=== PATIENT | male | born 2000 | race Caucasian/White ===

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

== ENCOUNTER 2018-08-15 11:08 | Emergency (ER) | payer BC ==
[2018-08-15 12:17] LABS: ABS Eosinophils 0.1 10^3/ul (0-0.6); ABS Lymphocytes 2.4 10^3/ul (1.0-4.8); ABS Monocytes 0.5 10^3/ul (0-0.8); ABS Neutrophils 2.7 10^3/ul (1.5-7.7); Eosinophil % 1.7 %; Hematocrit 48 % (42-52); Hemoglobin 16.2 g/dL (14.0-18.0); Lymphocyte % 42.2 %; Mean Corpuscular HGB Conc 34 g/dL (31-36); Mean Corpuscular Hemoglobin 31 pg (27-31); Mean Corpuscular Volume 90 fL (80-94); Nucleated Red Blood Cells % 0.1; Platelet Count 281 10^3/uL (150-450); Red Blood Count 5.27 10^6 /uL (4.18-5.48); Red Cell Distribution Width 12 % (10-15); White Blood Count 5.8 10^3/uL (3.5-10.8)
[2018-08-15 12:31] LABS: INR 1.13 (0.82-1.09)
[2018-08-15 12:41] LABS: Albumin 4.7 g/dL (3.2-5.2); Albumin/Globulin Ratio 1.9 (1-3); Calcium 10.1 mg/dL (8.6-10.3); EGFR African American 105.5 (>60); EGFR Non-African American 87.2 (>60); Globulin 2.5 g/dL (2-4); Potassium 3.6 mmol/L (3.5-5.0); Total Bilirubin 2.2 mg/dL (0.2-1.0); Total Protein 7.2 g/dL (6.4-8.9)
--- NOTE | 2018-08-15 13:52 | ED ---
HPI Chest Pain - HPI Summary HPI Summary: This pt is a 18 y/o M presenting to [facility] with a CC of right-mid anterior chest pain that is localized. He stated that he woke up this morning feeling anxious, nauseous and pale. Went and bought tums for a burning stomach pain that originated, came home and ate eggs for breakfast before laying down developing the CP described as cramping which is a 4/10 in severity. The pt states that the pain is alleviated with a deep breath. He states no unusual behaviors other taking a melatonin last night be described that he has taken the melatonin in the past without any effect. He has no aggravating symptoms. He denies vomiting , diarrhea, headaches, SOB, fevers, cough, diaphoresis, and a sore throat. He has a Hx of anxiety and is currently living with his girlfriend and aiding her at her job. - History of Current Complaint Chief Complaint: EDChestPainROMI Time Seen by Provider: 08/15/18 13:39 Hx Obtained From: Patient Onset/Duration: Started Hours Ago - [id number], Still Present Time of Onset: 09:30 Timing: Constant Initial Severity: Moderate Current Severity: Moderate Pain Intensity: 4 Pain Scale Used: 0-10 Numeric Chest Pain Location: Discrete at:, Right Anterior - close to his mid-line Chest Pain Radiates: No Character: Other: - cramping Aggravating Factor(s): Nothing Alleviating Factor(s): Other: - deep breaths Associated Signs and Symptoms: Positive: Negative - vomiting, diarrhea, headaches, SOB, fevers, cough, diaphoresis, and a sore throat, Chest Pain - Right-mid anterior, Anxiety, Nausea, Abdominal Pain - described as burning - Allergy/Home Medications Allergies/Adverse Reactions: Allergies Allergy/AdvReac Type Severity Reaction Status Date / Time No Known Allergies Allergy Verified 08/15/18 11:19 PMH/Surg Hx/FS Hx/Imm Hx Previously Healthy: No Infectious Disease History: No Infectious Disease History: Denies: Traveled Outside the [place] in Last 30 Days - Social History Alcohol Use: Occasionally Hx Substance Use: Yes - dextromethorphan Substance Use Type: Reports: Marijuana Hx Tobacco Use: No Smoking Status (MU): Never Smoked Tobacco Review of Systems Negative: Fever, Skin Diaphoresis Positive: Chest Pain - right-mid anterior, cramping Negative: Shortness Of Breath, Cough Positive: Abdominal Pain - burning, Nausea. Negative: Vomiting, Diarrhea Negative: Headache Positive: Anxious All Other Systems Reviewed And Are Negative: Yes Physical Exam - Summary Physical Exam Summary: Appearance: Well-appearing, Well-nourished, lying in bed comfortably Skin: Warm, dry, no obvious rash Eyes: sclera anicteric, no conjunctival pallor ENT: mucous membranes moist, pharynx appears normal Neck: Supple, nontender Respiratory: Clear to auscultation, no signs of respiratory distress Cardiovascular: Normal S1, S2. No murmurs. Normal distal pulses in tibial and radial bilaterally. Abdomen: Soft, nontender, normal active bowel sounds present Musculoskeletal: Normal, Strength/ROM Intact Neurological: A&Ox3, awake and alert, mentation is normal, speech is fluent and appropriate Psychiatric: affect is normal, does not appear anxious or depressed Triage Information Reviewed: Yes Vital Signs On Initial Exam: Initial Vitals Temp Pulse Resp BP Pulse Ox 98.5 F 84 14 136/81 98 08/15/18 11:14 08/15/18 11:14 08/15/18 11:14 08/15/18 11:14 08/15/18 11:14 Vital Signs Reviewed: Yes Diagnostics - Vital Signs Vital Signs Temp Pulse Resp BP Pulse Ox 08/15/18 13:24 80 19 146/92 100 08/15/18 12:50 99.5 F 68 12 118/58 100 08/15/18 11:14 98.5 F 84 14 136/81 98 - Laboratory Lab Results: Lab Results 08/15/18 08/15/18 08/15/18 Range/Units 12:02 12:02 12:02 WBC 5.8 (3.5-10.8) 10^3/uL RBC 5.27 (4.18-5.48) 10^6 /uL Hgb 16.2 (14.0-18.0) g/dL Hct 48 (42-52) % MCV 90 (80-94) fL MCH 31 (27-31) pg MCHC 34 (31-36) g/dL RDW 12 (10-15) % Plt Count 281 (150-450) 10^3/uL MPV 8.0 (7.4-10.4) fL Neut % (Auto) 47.1 % Lymph % (Auto) 42.2 % [place] % (Auto) 8.2 % Eos % (Auto) 1.7 % Baso % (Auto) 0.8 % Absolute Neuts (auto) 2.7 (1.5-7.7) 10^3/ul Absolute Lymphs (auto) 2.4 (1.0-4.8) 10^3/ul Absolute Monos (auto) 0.5 (0-0.8) 10^3/ul Absolute Eos (auto) 0.1 (0-0.6) 10^3/ul Absolute Basos (auto) 0.0 (0-0.2) 10^3/ul Absolute Nucleated RBC 0.0 10^3/ul Nucleated RBC % 0.1 INR (Anticoag Therapy) 1.13 H (0.82-1.09) D-Dimer, Quantitative Pending Sodium 140 (135-145) mmol/L Potassium 3.6 (3.5-5.0) mmol/L Chloride 106 (101-111) mmol/L Carbon Dioxide 28 (22-32) mmol/L Anion Gap 6 (2-11) mmol/L BUN 14 (6-24) mg/dL Creatinine 1.08 (0.67-1.17) mg/dL Est GFR ( Amer) 105.5 (>60) Est GFR (Non-Af Amer) 87.2 (>60) BUN/Creatinine Ratio 13.0 (8-20) Glucose 92 (70-100) mg/dL Calcium 10.1 (8.6-10.3) mg/dL Total Bilirubin 2.20 H (0.2-1.0) mg/dL AST 16 (13-39) U/L ALT 11 (7-52) U/L Alkaline Phosphatase 39 (34-104) U/L Troponin I 0.00 (<0.04) ng/mL Total Protein 7.2 (6.4-8.9) g/dL Albumin 4.7 (3.2-5.2) g/dL Globulin 2.5 (2-4) g/dL Albumin/Globulin Ratio 1.9 (1-3) Result Diagrams: 08/15/18 12:02 08/15/18 12:02 Lab Statement: Any lab studies that have been ordered have been reviewed, and results considered in the medical decision making process. - Radiology CXR Radiology Interpretation Completed By: Radiologist Summary of Radiographic Findings: NO EVIDENCE FOR ACTIVE CARDIOPULMONARY DISEASE. ED physician has reviewed this report. - EKG 1108 Cardiac Rate: NL - 59 BPM EKG Rhythm: Sinus Rhythm ST Segment: Normal Ectopy: None Summary of EKG Findings: NSR at 59 BPM, P waves, QRS complex, and T waves are within normal limits, T waves and intervals are normal, no ischemic changes. This is a normal EKG. Interpreted by Dr. Lara 08/15/18 [id number]. Chest Pain Course/Dx - Course Course Of Treatment: This pt is a 18 y/o M presenting to [facility] with a CC of right-mid anterior chest pain that is localized. He stated that he woke up this morning feeling anxious, nauseous and pale. Went and bought tums for a burning stomach pain that originated, came home and ate eggs for breakfast before laying down developing the CP described as cramping which is a 4/10 in severity. Upon his PE he has no abnormal findings. His CXR shows NO EVIDENCE FOR ACTIVE CARDIOPULMONARY DISEASE. His EKG shows a NSR at 59 BPM, P waves, QRS complex, and T waves are within normal limits, T waves and intervals are normal, no ischemic changes. This is a normal EKG. He has no abnormal lab findings. The pt will be discharged with a DX of non-cardiac chest pain due to no abnormal findings during his ED course. - Diagnoses Provider Diagnoses: Non-cardiac chest pain Discharge - Sign-Out/Discharge Documenting (check all that apply): Patient Departure - discharge Patient Received Moderate/Deep Sedation with Procedure: No - Discharge Plan Condition: Stable Disposition: HOME Patient Education Materials: Noncardiac Chest Pain (ED) Additional Instructions: The tests we ran today did not show any concerning findings, but the exact cause of your pain is unclear. If it is not starting to improve over the weekend , or if the pain is worsening or you are developing other symptoms, we should see you back here. - Billing Disposition and Condition Condition: STABLE Disposition: Home - Attestation Statements Document Initiated by Scribe: Yes Documenting Scribe: Rashad Carias Provider For Whom Scribe is Documenting (Include Credential): Matty Lara MD Scribe Attestation: Rashad Keys, scribed for Matty Lara MD on 08/17/18 at 0444. Scribe Documentation Reviewed: Yes Provider Attestation: The documentation as recorded by the scribe, Rashad Carias accurately reflects the service I personally performed and the decisions made by me, Matty Lara MD Status of Scribe Document: Viewed
[2018-08-15 14:51] VITALS: BP 142/74
== END 2018-08-15 14:51 | disposition home or self-care (01) ==
LOC: ED 11:08
DX: R07.89 Other chest pain (principal)
CPT/HCPCS: 36415; 71046; 80053; 84484; 85025; 85379; 85610; 93005; 99283

== ENCOUNTER 2018-09-04 19:19 | Emergency (ER) | payer BC ==
[2018-09-04 20:30] LABS: ABS Basophils 0.1 10^3/ul (0-0.2); ABS Lymphocytes 1.8 10^3/ul (1.0-4.8); ABS Monocytes 0.3 10^3/ul (0-0.8); ABS Neutrophils 2.5 10^3/ul (1.5-7.7); Eosinophil % 0.9 %; Hematocrit 47 % (42-52); Mean Corpuscular HGB Conc 34 g/dL (31-36); Mean Corpuscular Hemoglobin 31 pg (27-31); Mean Corpuscular Volume 89 fL (80-94); Mean Platelet Volume 7.8 fL (7.4-10.4); Nucleated Red Blood Cells % 0.2; Platelet Count 284 10^3/uL (150-450); Red Blood Count 5.24 10^6 /uL (4.18-5.48); Red Cell Distribution Width 13 % (10-15); White Blood Count 4.8 10^3/uL (3.5-10.8)
[2018-09-04 20:36] LABS: INR 1.2 (0.82-1.09)
[2018-09-04 20:46] LABS: Albumin 5.1 g/dL (3.2-5.2); BUN/Creatinine Ratio 9.9 (8-20); Calcium 10.7 mg/dL (8.6-10.3); EGFR African American 102.2 (>60); EGFR Non-African American 84.5 (>60); Globulin 2.5 g/dL (2-4); Potassium 3.8 mmol/L (3.5-5.0); Total Bilirubin 3.5 mg/dL (0.2-1.0); Total Protein 7.6 g/dL (6.4-8.9)
--- NOTE | 2018-09-04 20:46 | ED ---
Abdominal Pain/Male - HPI Summary HPI Summary: Patient complains of elevated bilirubin of 4.5 [facility] on routine labs, and right side pain and right sided back pain x 2 days. Right-sided pain described as mild, intermittent. Denies fever, cough, sore throat, CP, SOB, N/V /D, change in urine, change in BM, penis or testicular symptoms. Medical history is acid reflux, taking ranitidine twice a day 1 month. Abdominal surgical history is none. - History of Current Complaint Chief Complaint: EDAbdPain Stated Complaint: PRESSURE ON ABDOMEN PER PT Time Seen by Provider: 09/04/18 20:26 Hx Obtained From: Patient Onset/Duration: Gradual Onset Timing: Intermittent Severity Initially: Mild Severity Currently: Mild Pain Intensity: 2 Pain Scale Used: 0-10 Numeric Location: Discrete At: RUQ Radiates to: Back Character: Dull Aggravating Factor(s): Movement Alleviating Factor(s): Position Associated Signs And Symptoms: Positive: Back Pain - Allergies/Home Medications Allergies/Adverse Reactions: Allergies Allergy/AdvReac Type Severity Reaction Status Date / Time No Known Allergies Allergy Verified 09/04/18 21:03 Home Medications: Home Medications Melatonin 5 mg PO BEDTIME PRN 09/04/18 [History Confirmed 09/04/18] Nystatin 15 ml PO QID 09/04/18 [History Confirmed 09/04/18] Ranitidine TAB (NF) 150 mg PO BID 09/04/18 [History Confirmed 09/04/18] PMH/Surg Hx/FS Hx/Imm Hx Endocrine/Hematology History: Denies: Hx Anticoagulant Therapy Cardiovascular History: Denies: Hx Pacemaker/ICD History: Denies: Hx Dialysis Sensory History: Denies: Hx Legally Blind Opthamlomology History: Denies: Hx Eye Prosthesis EENT History: Denies: Hx Deafness Neurological History: Denies: Hx Dementia Infectious Disease History: No Infectious Disease History: Denies: Traveled Outside the [place] in Last 30 Days - Family History Known Family History: Positive: Non-Contributory - Social History Alcohol Use: Occasionally Hx Substance Use: Yes - dextromethorphan Substance Use Type: Reports: Marijuana Hx Tobacco Use: No Smoking Status (MU): Never Smoked Tobacco Review of Systems Constitutional: Negative Eyes: Negative ENT: Negative Cardiovascular: Negative Respiratory: Negative Positive: Abdominal Pain Genitourinary: Negative Musculoskeletal: Negative Skin: Negative Neurological: Negative Psychological: Normal All Other Systems Reviewed And Are Negative: Yes Physical Exam - Summary Physical Exam Summary: No appearance of jaundice. Abdominal exam unremarkable. Triage Information Reviewed: Yes Vital Signs On Initial Exam: Initial Vitals Temp Pulse Resp BP Pulse Ox 98.2 F 67 16 123/83 100 09/04/18 19:24 09/04/18 19:24 09/04/18 19:24 09/04/18 19:24 09/04/18 19:24 Vital Signs Reviewed: Yes Appearance: Positive: Well-Appearing Skin: Positive: Warm Head/Face: Positive: Normal Head/Face Inspection Eyes: Positive: Normal Neck: Positive: Supple Respiratory/Lung Sounds: Positive: Clear to Auscultation Cardiovascular: Positive: Normal Abdomen Description: Positive: Nontender Musculoskeletal: Positive: Normal Neurological: Positive: Normal Psychiatric: Positive: Normal AVPU Assessment: Alert - An Coma Scale Best Eye Response: 4 - Spontaneous Best Motor Response: 6 - Obeys Commands Best Verbal Response: 5 - Oriented Coma Scale Total: 15 Diagnostics - Vital Signs Vital Signs Temp Pulse Resp BP Pulse Ox 09/04/18 19:24 98.2 F 67 16 123/83 100 - Laboratory Lab Results: Lab Results 09/04/18 09/04/18 09/04/18 Range/Units 20:18 20:18 20:18 WBC 4.8 (3.5-10.8) 10^3/uL RBC 5.24 (4.18-5.48) 10^6 /uL Hgb 16.0 (14.0-18.0) g/dL Hct 47 (42-52) % MCV 89 (80-94) fL MCH 31 (27-31) pg MCHC 34 (31-36) g/dL RDW 13 (10-15) % Plt Count 284 (150-450) 10^3/uL MPV 7.8 (7.4-10.4) fL Neut % (Auto) 52.9 % Lymph % (Auto) 38.0 % [place] % (Auto) 7.0 % Eos % (Auto) 0.9 % Baso % (Auto) 1.2 % Absolute Neuts (auto) 2.5 (1.5-7.7) 10^3/ul Absolute Lymphs (auto) 1.8 (1.0-4.8) 10^3/ul Absolute Monos (auto) 0.3 (0-0.8) 10^3/ul Absolute Eos (auto) 0.0 (0-0.6) 10^3/ul Absolute Basos (auto) 0.1 (0-0.2) 10^3/ul Absolute Nucleated RBC 0.0 10^3/ul Nucleated RBC % 0.2 INR (Anticoag Therapy) 1.20 H (0.82-1.09) Ammonia 32 (16-53) mcmol/L Result Diagrams: 09/04/18 20:18 09/04/18 20:18 Lab Statement: Any lab studies that have been ordered have been reviewed, and results considered in the medical decision making process. Abdominal Pain Male Course/Dx - Course Course Of Treatment: Patient complains of elevated bilirubin of 4.5 [facility] on routine labs, and right side pain and right sided back pain x 2 days. Right-sided pain described as mild, intermittent. Denies fever, cough, sore throat, CP, SOB, N/V/D, change in urine, change in BM, penis or testicular symptoms. Medical history is acid reflux, taking ranitidine twice a day 1 month. Abdominal surgical history is none. Vital signs within normal limits. Bilirubin 3.5. Labs otherwise unremarkable. No elevated rated LFTs to suggest hepatitis. Ultrasound gallbladder and liver unremarkable. Patient advised to follow-up with primary care. Patient understands and approves of plan. - Diagnoses Provider Diagnoses: Abdominal pain Discharge - Sign-Out/Discharge Documenting (check all that apply): Patient Departure Patient Received Moderate/Deep Sedation with Procedure: No - Discharge Plan Condition: Stable Disposition: HOME Patient Education Materials: Acute Abdominal Pain (ED) Referrals: Care [facility] [Outside] No Primary Care Phys,NOPCP [Primary Care Provider] - Additional Instructions: Follow-up with [facility] for primary care. Return to the ED for any new or worsening symptoms - Billing Disposition and Condition Condition: STABLE Disposition: Home
[2018-09-04 23:29] VITALS: BP 127/68
== END 2018-09-04 23:30 | disposition home or self-care (01) ==
LOC: ED 19:19
DX: R10.11 Right upper quadrant pain (principal); M54.9 Dorsalgia, unspecified; E80.7 Disorder of bilirubin metabolism, unspecified
CPT/HCPCS: 36415; 76705; 80053; 82140; 83690; 85025; 85610; 99283

== ENCOUNTER 2019-04-09 04:23 | Emergency (ER) | payer BC ==
[2019-04-09] MEDS ORDERED: Ondansetron TAB* 4 MG PO ONE (04:25)
--- NOTE | 2019-04-09 04:35 | ED ---
Complex/Multi-Sys Presentation - HPI Summary HPI Summary: 19 year old M presenting to [facility] accompanied by EMS complains of body termors and emesis since 04004/09/2019 upon being woken up by his symptoms. Patient reports nausea, cramping, and sore throat. SocHx of occasional marijuana use. No alcohol use. FHx of thyroid disease. The patient rates the pain 6/10 in severity. Symptoms aggravated by nothing. Symptoms alleviated by nothing. - History Of Current Complaint Time Seen by Provider: 04/09/19 04:25 Hx Obtained From: Patient Onset/Duration: Sudden Onset, Lasting Hours, Still Present Severity Currently: Moderate Aggravating Factor(s): nothing Alleviating Factor(s): nothing Associated Signs And Symptoms: Positive: Nausea, Vomiting, Other - positive - cramping, body tremors sore throat - Allergies/Home Medications Allergies/Adverse Reactions: Allergies Allergy/AdvReac Type Severity Reaction Status Date / Time No Known Allergies Allergy Verified 09/04/18 21:03 PMH/Surg Hx/FS Hx/Imm Hx Endocrine/Hematology History: Denies: Hx Anticoagulant Therapy Cardiovascular History: Denies: Hx Pacemaker/ICD History: Denies: Hx Dialysis Sensory History: Denies: Hx Eye Prosthesis, Hx Legally Blind, Hx Deafness Opthamlomology History: Denies: Hx Eye Prosthesis, Hx Legally Blind Neurological History: Denies: Hx Dementia - Family History Known Family History: Positive: Other - thyroid disease - Social History Alcohol Use: Occasionally Hx Substance Use: Yes - dextromethorphan Substance Use Type: Reports: Marijuana Hx Tobacco Use: No Smoking Status (MU): Never Smoked Tobacco Review of Systems Positive: Sore Throat Positive: Vomiting, Nausea Positive: Other - body tremors and cramping All Other Systems Reviewed And Are Negative: Yes Physical Exam - Summary Physical Exam Summary: VITAL SIGNS: Reviewed. GENERAL: Patient is a well-developed and nourished male who is lying comfortable in the stretcher. Patient is not in any acute respiratory distress. HEAD AND FACE: Normocephalic and atraumatic. EYES: PERRLA, EOMI x 2, No injected conjunctiva. EARS: Hearing grossly intact. Ear canals and tympanic membranes are WNL. MOUTH: Oropharynx within normal limits. NECK: Supple, trachea is midline, no adenopathy, no JVD. CHEST: Symmetric, no tenderness at palpation. LUNGS: Clear to auscultation bilaterally. No wheezing or crackles. CVS: RRR, S1 and S2 present, no murmurs or gallops appreciated. ABDOMEN: Soft, non-tender. No signs of distention. Positive bowel sounds. No rebound, no guarding, and no masses palpated. No abdominal bruit or pulsations. EXTREMITIES: FROM in all major joints, no edema, no cyanosis or clubbing. NEURO: Alert and oriented x 3. No acute neurological deficits. Speech is normal. SKIN: Dry and warm. Triage Information Reviewed: Yes Vital Signs Reviewed: Yes Procedures - Sedation Patient Received Moderate/Deep Sedation with Procedure: No Diagnostics - Laboratory Result Diagrams: 04/09/19 04:40 04/09/19 04:40 Lab Statement: Any lab studies that have been ordered have been reviewed, and results considered in the medical decision making process. Complex Multi-Symp Course/Dx Assessment/Plan: 19 year old M presenting to [facility] accompanied by EMS complaints of body tremors and emesis since 39904/09/2019 upon being woken up by his symptoms. Patient reports nausea, cramping, and sore throat. SocHx of occasional marijuana use. No alcohol use. FHx of thyroid disease. The patient rates the pain 6/10 in severity. Symptoms aggravated by nothing. Symptoms alleviated by nothing. 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 Patient refused IV access. He was given Zofran SL. Blood test w/o a significant abnormality except for MCH 32, Absolute Neuts 8.3, Potassium 3.2, Glucose 124, Total bilirubin 2.3, Alkaline phosphatase 33. After taking Zofran , the patient reports that he is feeling better. He still refuses the IV access for IV fluids. Therefore the patient will be discharged home. He will be given a prescription for Zofran. He declined potassium. I discussed all the findings and test results with the patient. Patient was instructed to return to the emergency room immediately if any of the symptoms return worsens. Plan of care was discussed with the patient and understands and agrees. All questions were answered at patient satisfaction. There were no further complaints or concerns. Lung exam before discharge: CTA B/L. Good air exchange. No wheezing or crackles heard. CVS: S1 and S2 present. No murmurs appreciated. Patient is alert and oriented x 3. Patient is hemodynamically stable. Patient will be discharged home with follow up PCP in the next 2-3 days - Diagnoses Provider Diagnoses: Nausea and vomiting Discharge ED - Sign-Out/Discharge Documenting (check all that apply): Patient Departure - discharge - Discharge Plan Condition: Stable Disposition: HOME Prescriptions: Ondansetron ODT TAB* [Zofran 4 MG Odt TAB*] 4 mg PO Q8H PRN #10 tab.odt PRN Reason: Nausea/Vomiting Patient Education Materials: Acute Nausea and Vomiting (ED) Referrals: [facility] - Liu MILLER [Primary Care Provider] - Additional Instructions: FOLLOW UP WITH [facility] WITHIN ONE WEEK. RETURN TO THE ED FOR ANY WORSENING OR NEW SYMPTOMS. - Billing Disposition and Condition Condition: STABLE Disposition: Home - Attestation Statements Document Initiated by Preston: Yes Documenting Scribe: Rajiv Ponce Provider For Whom Preston is Documenting (Include Credential): Dr.Walter Chase MD Scribe Attestation: Rajiv Keys scribed for Dr.Walter Chase MD on 04/10/19 at 2051. Scribe Documentation Reviewed: Yes Provider Attestation: The documentation as recorded by the Rajiv farmer accurately reflects the service I personally performed and the decisions made by me, Dr.Walter Chase MD Status of Scribpatti Document: Viewed
[2019-04-09] MEDS: NS 0.9% 1000 ML** 1,000 ML IV ONE ×2 (04:38→04:45)
[2019-04-09 04:48] LABS: ABS Monocytes 0.4 10^3/ul (0-0.8); ABS Neutrophils 8.3 10^3/ul (1.5-7.7); Eosinophil % 0.5 %; Hematocrit 45 % (42-52); Hemoglobin 16.2 g/dL (14.0-18.0); Lymphocyte % 9.9 %; Mean Corpuscular HGB Conc 36 g/dL (31-36); Mean Corpuscular Hemoglobin 32 pg (27-31); Mean Corpuscular Volume 89 fL (80-94); Mean Platelet Volume 7.4 fL (7.4-10.4); Platelet Count 261 10^3/uL (150-450); Red Blood Count 5.08 10^6 /uL (4.18-5.48); Red Cell Distribution Width 12 % (10-15); White Blood Count 9.7 10^3/uL (3.5-10.8)
[2019-04-09 05:04] LABS: ALT 12 U/L (7-52); AST 15 U/L (13-39); Albumin 5.1 g/dL (3.2-5.2); Albumin/Globulin Ratio 2.4 (1-3); Alkaline Phosphatase 33 U/L (34-104); Anion Gap 8 mmol/L (2-11); BUN/Creatinine Ratio 8.8 (8-20); Blood Urea Nitrogen 10 mg/dL (6-24); C Reactive Protein < 1.00 mg/L (<8.01); CO2 Carbon Dioxide 27 mmol/L (22-32); Calcium 9.6 mg/dL (8.6-10.3); Chloride 106 mmol/L (101-111); EGFR African American 99.1 (>60); EGFR Non-African American 81.9 (>60); Globulin 2.1 g/dL (2-4); Glucose 124 mg/dL (70-100); Potassium 3.2 mmol/L (3.5-5.0); Sodium 141 mmol/L (135-145); Total Protein 7.2 g/dL (6.4-8.9)
[2019-04-09 05:54] VITALS: BP 136/74
== END 2019-04-09 05:52 | disposition home or self-care (01) ==
LOC: ED 04:23
DX: R11.2 Nausea with vomiting, unspecified (principal)
CPT/HCPCS: 36415; 80053; 83605; 83690; 85025; 86140; 99283; A9270-GY